=== PATIENT | female | born 1950 | race Caucasian/White ===

== ENCOUNTER 2021-03-13 07:18 | Day surgery (SDC) | payer MEDICARE, OTHER ==
[~2021-03-13 07:18] MED LIST: Bupivacaine 0.5% 50 ML MDV ONE; Lidocaine 1% with EPINEPHrine 1:100,000 50 ML MDV ONE
[2021-03-13] MEDS ORDERED: Propofol 200 MG/20 ML SDV ONE (07:54)
[2021-03-13] MEDS ORDERED: Midazolam 1 MG/ML 2 ML SDV ONE (07:54)
[2021-03-13] MEDS ORDERED: fentaNYL 100 MCG/2 ML SDV ONE (07:54)
[2021-03-13] MEDS ORDERED: Sodium Chloride 0.9% 1,000 ML IV SCH (08:00)
[2021-03-13] MEDS ORDERED: Lactated Ringers 1,000 ML IV SCH (08:15)
[2021-03-13] MEDS ORDERED: Ondansetron 4 MG/2 ML SDV ONE (08:32)
[2021-03-13] MEDS ORDERED: Lidocaine 1% with EPINEPHrine 1:100,000 50 ML MDV ONE (09:05)
[2021-03-13] MEDS ORDERED: Bacitracin Oint 1 GM U/D Packet ONE (09:39)
--- NOTE | 2021-03-14 06:17 | OR ---
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 POSTOPERATIVE DIAGNOSIS: Consistent with infected left congenital sinus tract. PROCEDURE PERFORMED: Excision of left auricular sinus tract. ANESTHESIA: MAC. DESCRIPTION OF TECHNIQUE: After satisfactory sedation, proposed surgical site was infiltrated with 1% xylocaine with 1:100,000 epinephrine solution, and then the area was then prepped with Betadine and draped. Examination showed a deep pit at the medial aspect of the root of helix. I then incised elliptical skin about 0.5 cm anterior to this and dissected down to the subcutaneous tissue revealing a planar dissection which I dissected toward superiorly and deep toward the base of the parietal bone. I then encountered the sinus tract verified by probing instrument through the exit site. 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 I then traced this to more superior and deep to reveal a small sac about 5 mm which was the end of the sinus tract. I then excised the connective tissue surrounding this, revealing the temporalis fascia deep as the margin resection, and I was able to easily resect the soft tissue off this area, and anteriorly, I saw some muscle which may be part of the auricular muscle which I incised through and basically incised down anteriorly to leave a cuff of soft tissue around 5 mm around the anterior portion of the sinus tract, and this allowed for the entire sinus tract and skin to be excised. Reconstruction was then fairly complicated because of the natural cartilage infolding to this area. The infolded cartilage was then sewn to each other and to the remnant of the incised cartilage anteriorly. Then, the root of the skin was then closed in a horizontal mattress fashion to amira the skin edge. The closure then progressed from deep to superior, thereby allowing for more approachable closure to the more deeper portion of this contoured closure. More laterally, I was able to easily approximate the cartilage to its incised counterpart anteriorly. The rest of the skin was then closed easily anterior superiorly with plain gut suture. Bacitracin ointment was applied. Ruiz Mari MD /[id number]
== END 2021-03-13 12:00 | disposition home or self-care (01) ==
LOC: JP.SDS 07:18
PROVIDERS: ATTEND Otolaryngology
DX: D23.22 Other benign neoplasm of skin of left ear and external auricular canal (principal); I12.9 Hypertensive chronic kidney disease with stage 1 through stage 4 chronic kidney disease, or unspecified chronic kidney disease; E03.9 Hypothyroidism, unspecified; N18.30 Chronic kidney disease, stage 3 unspecified; E11.22 Type 2 diabetes mellitus with diabetic chronic kidney disease; Z79.890 Hormone replacement therapy; Z79.899 Other long term (current) drug therapy; Z87.891 Personal history of nicotine dependence
CPT/HCPCS: 88304; J2250; J2405; J2704; J3010; J3490; J7120